=== PATIENT | male | born 1960 | race Caucasian/White ===

== ENCOUNTER 2022-03-12 10:25 | Emergency (ER) | payer MEDICARE, BC, SELFPAY ==
[2022-03-12 11:14] VITALS: BP 135/67; PULSE 57; RESP 16; TEMP 36.2; O2SAT 99
--- NOTE | 2022-03-12 11:24 | ED.SKABFB ---
HPI - Skin/Abscess/Foreign Bdy General Chief complaint: Skin/Abscess/Foreign Body Stated complaint: foreign object in rt foot Time Seen by Provider: 03/12/22 11:24 Source: patient Mode of arrival: ambulatory Limitations: no limitations History of Present Illness HPI narrative: Paolo is a 61-year-old male patient presenting to the clinic today with complaints of possible shard of glass and the right bottom foot. He reports that 2 days ago he stepped on a broken coffee pot that the cat knocked on the for. He believes his tetanus shot is up-to-date within last 10 years. Related Data Home Medications Medication Instructions Recorded Confirmed No Home Medications 03/12/22 03/12/22 Allergies Allergy/AdvReac Type Severity Reaction Status Date / Time No Known Allergies Allergy Verified 03/12/22 11:17 Review of Systems Review of Systems: Pertinent positives per HPI. Patient denies any fever, chills, rash, headache, visual changes, dizziness, cough, runny nose, sore throat, shortness of breath, chest pain, palpitations, nausea, vomiting, diarrhea, constipation, abdominal pain, or any urinary issues. PMFSH Comments At the time of my signature, I reviewed and agree with the nursing past medical, surgical, social, and family history. There is no relevant family history pertinent to the patient complaint. Exam Narrative: General: Well-developed, well nourished, in no apparent distress Head: Normocephalic, atraumatic. Cardio: Regular rate and rhythm, s1 and s2 normal, no murmur appreciated. Resp: Clear to auscultation bilaterally, no rhonchi, rales, wheezing or rubs. Integumentary: [place], warm, and dry, intact without lesion, no rashes. Small area to the right midfoot with a small palpable foreign body under the skin. Course Course Emergency Course: Portions of this record may have been created with voice recognition software. Level of Care: Express Care Visit Vital Signs Vital signs: Vital Signs Temperature 36.2 C L 03/12/22 11:14 Pulse Rate 57 L 03/12/22 11:14 Respiratory Rate 16 03/12/22 11:14 Blood Pressure 135/67 03/12/22 11:14 Pulse Oximetry 99 03/12/22 11:14 Oxygen Delivery Room Air 03/12/22 11:14 Temperature 36.2 C L 03/12/22 11:14 Pulse Rate 57 L 03/12/22 11:14 Respiratory Rate 16 03/12/22 11:14 Blood Pressure 135/67 03/12/22 11:14 Pulse Oximetry 99 03/12/22 11:14 Oxygen Delivery Room Air 03/12/22 11:14 Vital signs reviewed Procedures Foreign Body Removal Foreign Body #1: Foreign Body Removal Date: 03/12/22 Site: right and foot Description of foreign body: other (Shard of glass) Sedation/Analgesia: none Technique: removal with forceps and other (18 gauge needle) Confirmed by:: direct visualization, patient report and palpation Complications: none Post-procedure exam: awake, alert Neurovascular: no change from pre-procedure Foreign Body Removal Narrative: Verbal consent obtained for foreign body removal of soft tissue of the right foot. Patient has suspected shard of glass in the right midfoot. Area was numbed using 2 mL of lidocaine without epi. A 15 blade was then used to make a 0.5 cm incision. Forceps were then used to palpate the wound and shard of glass was palpable and removed with the assistance of an 18 gauge needle. Patient palpated foot and feels as though the shard of glass is gone. No visualization of any other foreign body and wound bed. Patient tolerated procedure well less than 5 mL of blood loss. Triple antibiotic ointment and Band-Aid after bleeding was controlled. Discharge Plan Discharge Clinical Impression: Acute foreign body of right foot Qualifiers: Encounter type: initial encounter Qualified Code(s): S90.851A - Superficial foreign body, right foot, initial encounter Patient Disposition: Home, Self-Care Condition: Stable Instructions: Antibiotic Form, Soft Tis
== END 2022-03-12 11:45 | disposition home or self-care (01) ==
PROVIDERS: Emergency Provider Nurse Practitioner Family
DX: S90.851A Superficial foreign body, right foot, initial encounter (principal); W25.XXXA Contact with sharp glass, initial encounter; E78.00 Pure hypercholesterolemia, unspecified
CPT/HCPCS: 10120; 99202; G0463

== ENCOUNTER 2022-10-30 08:16 | Outpatient (CLI) | payer MEDICARE, OTHER, SELFPAY ==
[2022-10-30 08:37] LABS: Basophils Absolute Auto 0.1 K/mm3 (0.0-0.1); Basophils Percent Auto 0.6 % (0.2-1.2); Eosinophils Absolute Auto 0.1 K/mm3 (0-0.3); Eosinophils Percent Auto 1.6 % (0-4.4); Hematocrit 48.8 % (42.0-52.0); Hemoglobin 15.6 g/dL (14.0-18.0); Immature Granulocyte Absolute 0.02 K/mm3 (0.00-0.031); Immature Granulocyte Percent A 0.3 % (0-0.5); Lymphocytes Absolute Auto 1.68 K/mm3 (0.9-3.2); Lymphocytes Percent Auto 21.1 % (18.3-44.2); Mean Corpuscular Hemoglobin 28.9 pg (26-34); Mean Corpuscular Volume 90.5 fl (80-100); Mean Platelet Volume 10.6 fl (7.4-10.4); Monocytes Absolute Auto 0.6 K/mm3 (0.1-0.6); Monocytes Percent Auto 7.8 % (2.6-8.5); Neutrophils Absolute Auto 5.5 K/mm3 (1.3-6.7); Neutrophils Percent Auto 68.6 % (45.5-73.1); Platelet Count Result 181 k/mm3 (150-375); Red Blood Count 5.39 M/mm3 (4.6-6.20); Red Cell Distribution Width 14.4 % (11.5-14.5)
[2022-10-30 08:49] LABS: Alanine Aminotransferase 36 U/L (6-50); Albumin Level 4.4 g/dL (3.5-5.1); Alkaline Phosphatase 83 U/L (38-126); Anion Gap 9 mmol/L (8-16); Aspartate Amino Transferase 28 U/L (17-59); Bilirubin,Total 0.4 mg/dL (0.2-1.3); Blood Urea Nitrogen 21 mg/dL (9-20); Calcium 9.4 mg/dL (8.4-10.2); Carbon Dioxide 29 mmol/L (22-30); Chloride 103 mmol/L (98-107); Cholesterol 268 mg/dL (0-200); Estimated Glomerular Filt Rate > 60; Glucose 104 mg/dL (65-110); HDL Direct 44 mg/dL; Potassium 4.1 mmol/L (3.4-5.0); Sodium 141 mmol/L (137-145); Triglycerides 142 mg/dL (<150)
[2022-10-30 09:00] LABS: LDL Cholesterol Direct 190 mg/dL
[2022-10-30 09:19] LABS: Prostate Specific Antigen 1.1 ng/mL (< OR = 4.0)
== END 2022-10-30 08:17 | disposition home or self-care (01) ==
PROVIDERS: PCP Family Medicine; Visit Provider Physician Assistant Medical
DX: E78.5 Hyperlipidemia, unspecified (principal); Z13.0 Encounter for screening for diseases of the blood and blood-forming organs and certain disorders involving the immune mechanism; Z12.5 Encounter for screening for malignant neoplasm of prostate; Z01.83 Encounter for blood typing
CPT/HCPCS: 36415; 80053; 80061; 84153; 85025; 86900; 86901; G0103

== ENCOUNTER → 2022-11-19 11:49 | Outpatient (CLI) | payer MEDICARE, OTHER, SELFPAY ==
--- NOTE | ~2022-11-19 | XR_ITS ---
Thoracic spine: Clinical Indication: Other specified postprocedural states AP and lateral views were performed. There is probable minimal anterior wedging deformity of T9. The intervertebral disc spaces appear nor mal. Intrathecal catheter/wire present. Impression: Intrathecal catheters/wires present. Minimal anterior wedging deformity of T9. Reviewed, dictated and finalized at [facility]. Impression: Intrathecal catheters/wires present. Minimal anterior wedging deformity of T9.
--- NOTE | ~2022-11-19 | XR_ITS ---
Lumbosacral Spine: AP and lateral views Clinical History: Postprocedural state Findings: The normal lordotic curve is maintained. There is left-sided posterior fusion hardware from L4 to L5 with associated L4-L5 interbody fusion device present. There is moderate to advanced degene rative disc narrowing at L3-L4 and L5-S1. There is severe degenerative disc narrowing at L2-L3. There is moderate to advanced facet arthropathy at the lower lumbar spine. There is 4 mm retrolisthesis of L3 over L4. The intervertebral disc spaces are preserved. The sacroiliac joints are normally outlin ed. Neurostimulator wires/internal catheter present. Impression: Moderate degenerative spondylosis, with 4 mm retrolisthesis of L3 over L4. Postoperative changes at the L4-L5 level, as above. Neurostimulator present. Reviewed, dictated and finalized at [facility]. Impression: Moderate degenerative spondylosis, with 4 mm retrolisthesis of L3 over L4. Postoperative changes at the L4-L5 level, as above. Neurostimulator present.
== END ==
PROVIDERS: PCP Physician Assistant Medical; Visit Provider Pain Medicine Pain Medicine
DX: M54.16 Radiculopathy, lumbar region (principal); Z98.890 Other specified postprocedural states; M47.896 Other spondylosis, lumbar region; Z96.82 Presence of neurostimulator
CPT/HCPCS: 72072; 72100

== ENCOUNTER 2022-12-08 07:49 | Outpatient (CLI) | payer MEDICARE, OTHER, SELFPAY ==
[2022-12-08 08:24] LABS: Alanine Aminotransferase 38 U/L (6-50); Cholesterol 168 mg/dL (0-200); HDL Direct 41 mg/dL; Triglycerides 149 mg/dL (<150)
[2022-12-08 08:33] LABS: LDL Cholesterol Direct 94 mg/dL
[2022-12-08 08:36] LABS: Creatine Kinase 39 U/L (55-170)
== END 2022-12-08 07:50 | disposition home or self-care (01) ==
PROVIDERS: PCP Physician Assistant Medical; Visit Provider Physician Assistant Medical
DX: E78.5 Hyperlipidemia, unspecified (principal)
CPT/HCPCS: 36415; 80061; 82550; 84460

== ENCOUNTER 2023-02-06 13:16 | Outpatient (CLI) | payer MEDICARE, OTHER, BC, SELFPAY ==
--- NOTE | 2023-02-06 13:29 | ECG_ITS ---
Measurements Intervals [place] Rate: 55 P: 42 KS: 151 QRS: 30 QRSD: 90 T: 17 QT: 410 QTc: 392 Interpretive Statements SINUS BRADYCARDIA CANNOT RULE OUT SEPTAL INFARCT, AGE INDETERMINATE ABNORMAL ECG NO PREVIOUS ECG AVAILABLE FOR COMPARISON Electronically Signed On 02-06-2023 15:13:17 CLIENT SERVICES DIRECTOR by Elan Abdul D.O.
== END 2023-02-06 13:17 | disposition home or self-care (01) ==
PROVIDERS: PCP Family Medicine; Visit Provider Physician Assistant Medical
DX: Z01.818 Encounter for other preprocedural examination (principal); R94.31 Abnormal electrocardiogram [ECG] [EKG]
CPT/HCPCS: 93005

== ENCOUNTER 2023-11-04 09:46 | Observation (INO) | payer MEDICARE, OTHER, SELFPAY ==
[2023-11-04] VITALS (13 sets, daily range): BP systolic 129–150; BP diastolic 59–78; PULSE 48–98; RESP 14–22; TEMP 36.4–36.8; O2SAT 96–100; BMI 27.2
--- NOTE | ~2023-11-04 | CT_ITS ---
Clinical Indication: Dyspnea CT Scan of the Chest with Contrast: Technique: Contiguous sections were acquired throughout the chest after intravenous administration of 100 cc of Omnipaque 350. Dose reduction technique was used on this scan by utilizing automated expos ure control and iterative reconstruction technique. The dose-length product (DLP) was 533.98 mGy-cm. Findings: There is no evidence of any significant mediastinal, hilar or axillary lymphadenopathy. There is no f illing defect in the pulmonary arterial tree to suggest pulmonary embolus. There is no evidence of ao rtic dissection or aneurysm. There is no evidence of pleural or pericardial effusion. Pulmonary nodule with small central calcification at the lingula is most compatible with granuloma. L ungs are otherwise clear. Images through the upper abdomen reveal no abnormalities. Impression: No evidence of pulmonary embolus, aortic dissection, or aortic aneurysm. Probable lingular granuloma, otherwise clear lungs. Reviewed, dictated and finalized at [facility]. Impression: No evidence of pulmonary embolus, aortic dissection, or aortic aneurysm. Probable lingular granuloma, otherwise clear lungs.
--- NOTE | ~2023-11-04 | XR_ITS ---
Clinical Indication: Chest pain PA and lateral views of the chest: Comparison: None Findings: The lungs are clear, without evidence of focal consolidation or pleural effusion. Cardiome diastinal silhouette is within normal limits. Bones and soft tissues are unremarkable. Impression: Normal chest. Reviewed, dictated and finalized at location . Impression: Normal chest.
--- NOTE | ~2023-11-04 | NM_ITS ---
EXAMINATION: NM kemal stress w perfusion DATE: 11/05/2023 12:28 CDT INDICATION: Exertional chest pain TECHNIQUE: Rest images were obtained following intravenous administration of 11 mCi Tc99m tetrofosmin (Myoview). The patient was infused intravenously with Lexiscan (regadenoson). Then, 33.7 mCi Tc99m t etrofosmin (Myoview) was administered intravenously, and stress images were obtained. Data was recons tructed into short axis and horizontal and vertical long axis SPECT images. Gated SPECT images were a lso obtained. COMPARISON: None. FINDINGS: There is no definite reversible or fixed perfusion abnormality to suggest ischemia or infar ction. There is no segmental wall motion abnormality. Left ventricular ejection fraction measures 6 7%. IMPRESSION: 1. No definite ischemia or infarct. 2. Normal left ventricular ejection fraction measuring 67%. Reviewed, dictated and finalized at location B.
--- NOTE | 2023-11-04 09:47 | ECG_ITS ---
Test Date: 2023-11-04 10:03:33 Measurements Intervals [place] Rate: 54 P: 42 CA: 161 QRS: 17 QRSD: 90 T: 44 QT: 417 QTc: 398 Interpretive Statements SINUS BRADYCARDIA OTHERWISE NORMAL ELECTROCARDIOGRAM No previous ECG available for comparison Electronically Signed On 11-05-2023 07:19:57 CDT by Cayden Torrez M.D.
[2023-11-04 10:11] LABS: Basophils Absolute Auto 0.1 K/mm3 (0.0-0.1); Basophils Percent Auto 0.7 % (0.2-1.2); Eosinophils Absolute Auto 0.2 K/mm3 (0-0.3); Eosinophils Percent Auto 1.8 % (0-4.4); Hematocrit 51.5 % (42.0-52.0); Immature Granulocyte Absolute 0.02 K/mm3 (0.00-0.031); Immature Granulocyte Percent A 0.2 % (0-0.5); Lymphocytes Percent Auto 23.3 % (18.3-44.2); Mean Corpuscular Hemoglobin 29.7 pg (26-34); Mean Corpuscular Volume 89.9 fl (80-100); Mean Platelet Volume 11.3 fl (7.4-10.4); Monocytes Absolute Auto 0.5 K/mm3 (0.1-0.6); Monocytes Percent Auto 6.6 % (2.6-8.5); Neutrophils Absolute Auto 5.5 K/mm3 (1.3-6.7); Neutrophils Percent Auto 67.4 % (45.5-73.1); Platelet Count Result 157 k/mm3 (150-375); Red Blood Count 5.73 M/mm3 (4.6-6.20); Red Cell Distribution Width 13.9 % (11.5-14.5); White Blood Count 8.2 K/mm3 (4.5-10.0)
[2023-11-04 10:20] LABS: Alanine Aminotransferase 36 U/L (6-50); Albumin Level 4.9 g/dL (3.5-5.1); Alkaline Phosphatase 76 U/L (38-126); Anion Gap 11 mmol/L (4-12); Aspartate Amino Transferase 30 U/L (17-59); Bilirubin,Total 0.4 mg/dL (0.2-1.3); Blood Urea Nitrogen 12 mg/dL (9-20); Calcium 9.7 mg/dL (8.4-10.2); Carbon Dioxide 28 mmol/L (22-30); Chloride 102 mmol/L (98-107); Estimated CRCL calculation 65 ml/min; Estimated Glomerular Filt Rate > 60; Glucose 119 mg/dL (65-110); Lipase 85 U/L (23-300); Potassium 4.4 mmol/L (3.4-5.0); Sodium 141 mmol/L (137-145)
[2023-11-04 10:32] LABS: Troponin I < 0.012 ng/mL (0.000-0.034)
[2023-11-04 10:39] LABS: INR 0.9; Prothrombin Time 12.3 Seconds (11.1-14.7)
[2023-11-04 10:40] LABS: Partial Thromboplastin Time 27.1 Seconds (22.3-36.8)
[2023-11-04] MEDS: ASPIRIN 81 MG CHEWABLE TABLET 324 MG PO (11:45)
--- NOTE | 2023-11-04 11:53 | ED.GENADULT ---
HPI - General Adult General Chief complaint: Chest Pain Stated complaint: chest pain, shortness of breath upon exertion Time Seen by Provider: 11/04/23 11:38 History of Present Illness HPI narrative: This is a 63-year-old male with past medical history significant for hypertension, hyperlipidemia who presents to the emergency room with chief complaint of worsening chest pain and difficulty in breathing he describes as only occurring with exertion. Patient states for last month he has been doing with this similar symptom whenever he gets up and moves around or exerts himself such as walking up and down stairs, lifting things around the house or even walking past the block. Patient states he gets sudden chest pain in the center of his chest that does not radiate anywhere and is associated with difficulty in breathing. He patient states he sometimes feels like he is gasping for breath when this occurs. Has not sought medical attention has never seen a waste management recycling technician or underwent any kind of evaluation with an echocardiogram. Presently he is asymptomatic at rest and denies any nausea, vomiting, chest pain, shortness a breath, abdominal pain, back pain, fever, chills. Denies any history of DVT or PE denies any leg swelling or history of CHF. Was previously in his normal state of health. Related Data Allergies Allergy/AdvReac Type Severity Reaction Status Date / Time No Known Allergies Allergy Verified 11/04/23 09:52 Review of Systems Review of Systems: As reviewed above in HPI [facility] Past Medical History Medical History Abnormal EKG BMI 25.0-25.9,adult BMI 28.0-28.9,adult Degenerative disc disease Lumbar spondylosis Malfunction of spinal cord stimulator Surgical History Surgical History History of knee surgery History of lumbar spinal fusion Family History Family History Father Cancer Mother Cancer Sibling Diabetes mellitus Drug abuse Sibling No problems noted. Other Acute myocardial infarction Social History Social History Smoking packs per day: 1 Smoking cigarettes per day: 20.0 Smoking status: Current every day smoker Tobacco type: cigarettes Second hand tobacco smoke exposure: No Alcohol intake: never Substance use: never Substance use type: does not use Lack of Transportation: No Lack of Food: Never True Current Housing: I Have Housing Concerned About Future Housing: No Difficulty Paying Gas/Electric Bills: No Difficulty Paying for Meds: No Currently Unemployed: No Education: Trade/Vocational Certificate Difficulty w/ Childcare or Family Care: No Living arrangements: with family Occupation/Education: retired 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 Mucous membranes moist. NECK: Supple. CHEST: [Clear to auscultation. No respiratory distress.] HEART: [Regular rate and rhythm]. No murmur heard. [Normal peripheral pulses.] ABDOMEN: [Soft, nondistended], [nontender], [No rigidity or guarding] EXTREMITIES: Normal range of motion. [No edema.] SKIN: Warm, dry, no rash. NEURO: [No focal deficits]. Alert and oriented [x3.] PSYCH: [Normal mood and affect.] Course Vital Signs Vital signs: Vital Signs Temperature 36.6 C 11/04/23 09:47 Pulse Rate 66 11/04/23 09:47 Respiratory Rate 15 11/04/23 09:47 Blood Pressure 150/74 H 11/04/23 09:47 Pulse Oximetry 97 11/04/23 09:47 Oxygen Delivery Room Air
[2023-11-04 13:24] LABS: Troponin I < 0.012 ng/mL (0.000-0.034)
--- NOTE | 2023-11-04 14:55 | PM.IMHP ---
H&P: HPI History of Present Illness Date/Time: 11/04/23 14:55 Chief Complaint: Chest pain Narrative: This is a 63-year-old male with a significant past medical history of hyperlipidemia, current every day smoker presents to the hospital with complaints of worsening chest pain and difficulty breathing with exertion. Patient reports that he has had substernal chest pain with exertion which does relieve with rest for the last few days. He denies ever having a cardiac workup, echocardiogram, or cardiac catheterization in the past. He reports that quite a few men in his family have all from having a heart attack. He does report that he is a current 1 pack per day smoker and has smoked his entire life. He denies any fever, chills, nausea, vomiting, diarrhea, abdominal pain, chest pain, shortness a breath. He states when the chest pain does come on with exertion it is 10/10 pain accompanied with shortness of breath. He is found to be hypertensive with blood pressures ranging 129/60-150/74. He is not on any home medication for blood pressure. Workup in the hospital included chest x-ray which was normal. Chest CTA was negative for PE, aortic dissection, aortic aneurysm, probable lingular granuloma otherwise clear lungs. Initial labs showed a normal white blood cell count of 8.2, INR 0.9, troponin negative x2, lipase 85. EKG showing sinus Braulio with a heart rate of 54, QTC 398. He was given aspirin 324 mg while in the ED. Review of Systems Review of Systems: All systems reviewed & are unremarkable except as noted in HPI and below Constitutional: Constitutional: Reports as per HPI and Reports no additional constitutional complaints Eyes: Eyes: Reports as per HPI and Reports no additional eye complaints ENT: Reports system reviewed and no additional complaints, except as documented and Reports as per HPI Cardiovascular: Cardiovascular: Reports as per HPI and Reports no additional cardiovascular complaints Respiratory: Respiratory: Reports as per HPI and Reports no additional respiratory complaints Gastrointestinal: Gastrointestinal: Reports as per HPI and Reports no additional gastrointestinal complaints Genitourinary: Genitourinary: Reports no additional male genitourinary complaints and Reports as per HPI Musculoskeletal: Musculoskeletal: Reports no additional musculoskeletal complaints and Reports as per HPI Integumentary/Breasts: Skin/Breast: Reports system reviewed and no additional complaints, except as docu and Reports as per HPI Neurologic: Reports system reviewed and no additional complaints, except as documented and Reports as per HPI Psychiatric: Psychiatric: Reports no additional psychiatric complaints and Reports as per HPI [facility] Past Medical History Medical History Abnormal EKG BMI 25.0-25.9,adult BMI 28.0-28.9,adult Degenerative disc disease HTN (hypertension) Hyperlipidemia Lumbar spondylosis Malfunction of spinal cord stimulator Tobacco abuse Surgical History Surgical History H/O hernia repair H/O shoulder surgery History of knee surgery History of lumbar spinal fusion S/P placement of nerve stimulator Family History Family History Father Cancer Mother Cancer Sibling Diabetes mellitus Drug abuse Sibling No problems noted. Other , Uncle Acute myocardial infarction Other , Uncle Acute myocardial infarction Other Acute myocardial infarction Social History Social History Smoking packs per day: 1 Smoking cigarettes per day: 20.0 Smoking status: Current every day smoker Tobacco type: cigarettes Second hand tobacco smoke exposure: No Alcohol intake: nev
--- NOTE | 2023-11-04 15:22 | PC.NURSE ---
Spoke with stress lab, they state pt will be getting his tests tomorrow so he can eat today then NPO after midnight
[2023-11-04] MEDS: NICOTINE (*PBKC) 14 MG PATCH 1 PATCH TRANSDERM (16:06)
[2023-11-04 16:34] LABS: Troponin I < 0.012 ng/mL (0.000-0.034)
--- NOTE | 2023-11-04 18:27 | ADMGEN ---
This patient, Paolo Williamson, was admitted to IMU Room 231-01 @ 1825.. Patient/family oriented to hospital policies and general routines including ID bracelet, bed and alarms, visiting hours, pain management, procedures, bathroom and other care routines, personal items, smoking policy, room service/diet, and visiting hours. Information on how to activate the Rapid Response Team has been discussed. Patient/Family are encouraged to report perceived risks to care and to ask questions if they do not understand what they are told or what they should do.
[2023-11-04] MEDS: MELATONIN 3 MG TABLET 6 MG PO (20:49)
[2023-11-05] VITALS (8 sets, daily range): BP systolic 122–129; BP diastolic 53–86; PULSE 45–67; RESP 12–18; TEMP 36.5–36.7; O2SAT 95–100
--- NOTE | 2023-11-05 | EST_ITS ---
Patient Info Name: Paolo Williamson Age: 63 years : 1960 Gender: Male Ht: 66 in Wt: 172 lbs BSA: 1.92 m2 Exam Date: 11/05/2023 11:07 AM Exam Location: Echo Lab Patient Status: Outpatient Admit Date: 11/04/2023 Staff Ordering Physician: Fe Murphy APRN Attending Provider: Ophelia Nguyen MD Exercise Technologist: Arleth Rico RDCS Exercise Physician: Elan Abdul DO Exam Type: CA stress kemal w NM Study Info Indications R07.9 - Chest pain, unspecified A regadenoson stress test was performed. Summary 1. 1. Negative lexiscan stress test for ischemic ST changes by ECG criteria. 2. 2. Stable hemodynamics throughout the test. 3. 3. Nuclear scan to follow and will be reported separately. Please correlate with it. 4. 4. Patient informed of the above results. Protocol: Lexiscan Stress ECG Details Stage: REST Duration (min): 0 min : 46 sec HR (bpm): 51 SBP (mmHg): 139 DBP (mmHg): 63 Stage: REST Duration (min): 0 min : 52 sec HR (bpm): 52 SBP (mmHg): 139 DBP (mmHg): 63 Stage: REST Duration (min): 14 min : 36 sec HR (bpm): 52 SBP (mmHg): 139 DBP (mmHg): 63 Stage: STAGE 1 Duration (min): 0 min : 59 sec HR (bpm): 80 SBP (mmHg): 152 DBP (mmHg): 86 Stage: RECOVERY Duration (min): 1 min : 0 sec HR (bpm): 80 SBP (mmHg): 169 DBP (mmHg): 79 Stage: RECOVERY Duration (min): 2 min : 0 sec HR (bpm): 81 SBP (mmHg): 169 DBP (mmHg): 79 Stage: RECOVERY Duration (min): 3 min : 0 sec HR (bpm): 76 SBP (mmHg): 153 DBP (mmHg): 78 Stage: RECOVERY Duration (min): 3 min : 3 sec HR (bpm): 77 SBP (mmHg): 153 DBP (mmHg): 78 Rest HR: 52 bpm Peak HR: 90 bpm Rest Sys BP: 139 mmHg Peak Sys BP: 169 mmHg Max Pred HR: 155 bpm % Max Pred HR: 58 % Target HR: 132 bpm Max RPP: 15,210 bpm*mmHg Termination Reason: Completed protocol Cardiac Symptoms: Shortness of breath Total Time: 1 min : 0 sec Rest Camacho BP: 63 mmHg Peak Camacho BP: 79 mmHg Total Dose: 0.4 mg Resting ECG Sinus bradycardia. Stress ECG No ST changes. Arrhythmias None. Report Signatures
[2023-11-05 05:38] LABS: Basophils Absolute Auto 0.1 K/mm3 (0.0-0.1); Basophils Percent Auto 0.9 % (0.2-1.2); Eosinophils Absolute Auto 0.1 K/mm3 (0-0.3); Eosinophils Percent Auto 1.9 % (0-4.4); Hematocrit 45.7 % (42.0-52.0); Hemoglobin 14.8 g/dL (14.0-18.0); Immature Granulocyte Absolute 0.01 K/mm3 (0.00-0.031); Immature Granulocyte Percent A 0.1 % (0-0.5); Lymphocytes Absolute Auto 1.88 K/mm3 (0.9-3.2); Lymphocytes Percent Auto 28.1 % (18.3-44.2); Mean Corpuscular HGB Conc 32.4 g/dl (32-36); Mean Corpuscular Hemoglobin 29.5 pg (26-34); Mean Corpuscular Volume 91.2 fl (80-100); Mean Platelet Volume 11.3 fl (7.4-10.4); Monocytes Absolute Auto 0.6 K/mm3 (0.1-0.6); Monocytes Percent Auto 8.2 % (2.6-8.5); Neutrophils Absolute Auto 4.1 K/mm3 (1.3-6.7); Neutrophils Percent Auto 60.8 % (45.5-73.1); Platelet Count Result 143 k/mm3 (150-375); Red Blood Count 5.01 M/mm3 (4.6-6.20); Red Cell Distribution Width 13.8 % (11.5-14.5); White Blood Count 6.7 K/mm3 (4.5-10.0)
[2023-11-05 05:54] LABS: Alanine Aminotransferase 27 U/L (6-50); Albumin Level 3.8 g/dL (3.5-5.1); Alkaline Phosphatase 67 U/L (38-126); Anion Gap 9 mmol/L (4-12); Aspartate Amino Transferase 24 U/L (17-59); Bilirubin,Total 0.3 mg/dL (0.2-1.3); Blood Urea Nitrogen 15 mg/dL (9-20); Carbon Dioxide 26 mmol/L (22-30); Chloride 103 mmol/L (98-107); Estimated CRCL calculation 65 ml/min; Estimated Glomerular Filt Rate > 60; Glucose 105 mg/dL (65-110); Potassium 4.5 mmol/L (3.4-5.0); Sodium 138 mmol/L (137-145)
--- NOTE | 2023-11-05 06:00 | ECHO_ITS ---
Patient Info Name: Paolo Williamson Age: 63 years : 1960 Gender: Male Ht: 66 in Wt: 168 lbs BSA: 1.90 m2 HR: 49 bpm BP: 128 / 53 mmHg Heart Rhythm: Bradycardia Technical Quality: Fair Exam Date: 11/05/2023 9:47 AM Exam Location: Echo Lab Patient Status: Inpatient Admit Date: 11/04/2023 Staff Ordering Physician: Elijah Rowell MD Supervisor Cured Meats: Esther Stratton RDCS Attending Provider: Ophelia Nguyen MD Referring Physician: Sorin REDDING; Exam Type: CA echo doppler color flow Study Info Indications - angina Complete two-dimensional, color flow and Doppler transthoracic echocardiogram is performed. Summary 1. Complete two-dimensional, color flow and Doppler transthoracic echocardiogram is performed. 2. Left ventricular chamber dimension is normal. 3. Left ventricular systolic function is normal, estimated at 60-65%. 4. The left ventricular diastolic function is abnormal. 5. E/e' 10 is mildly elevated. 6. No pulmonary hypertension, estimated pulmonary arterial systolic pressure is 18 mmHg. Left Ventricle E/e' 10 is mildly elevated. Left ventricular chamber dimension is normal. Left ventricular systolic function is normal, estimated at 60-65%. The left ventricular diastolic function is abnormal. Right Ventricle Right ventricular chamber dimension is normal. Right ventricular systolic function is normal and with normal TAPSE 2.2 cm. Left Atria Left atrial chamber dimension is normal. Right Atria Right atrial chamber dimension is normal. Aortic Valve The aortic valve is trileaflet. There is no aortic valve stenosis. There is no aortic valve regurgitation. Pulmonic Valve There is no pulmonic regurgitation. Mitral Valve There is no mitral valve stenosis. There is no mitral valve regurgitation. Tricuspid Valve There is no tricuspid valve regurgitation. No pulmonary hypertension, estimated pulmonary arterial systolic pressure is 18 mmHg. Pericardium/Pleural There is no pericardial effusion. Inferior Vena Cava Normal inferior vena cava with >50% collapse upon inspiration consistent with normal right atrial pressure, 5 mmHg. Aorta The aortic root size at the sinus of Valsalva is normal. Left Ventricular Outflow Tract Name Value Normal LVOT 2D LVOT Diameter 2.0 cm LVOT Doppler LVOT Peak Gradient 4 mmHg LVOT Mean Gradient 1 mmHg LVOT VTI 20 cm LVOT VTI/AV VTI Ratio 0.8 LVOT Stroke Volume 64 ml LVOT CO 3.2 l/min LVOT CI 1.7 l/min/m2 Pulmonic Valve Name Value Normal RVOT Doppler RVOT Peak Gradient 1 mmHg PV Doppler PV Peak Gradient 3 mmHg Mitral Valve
[2023-11-05] MEDS: lisinopriL 5 MG TABLET PO (09:18)
[2023-11-05] MEDS: ROSUVASTATIN 20 MG TABLET 40 MG PO (09:18)
[2023-11-05] MEDS: ASPIRIN 81 MG ENTERIC TABLET PO (09:18)
--- NOTE | 2023-11-05 10:35 | PM.CNCAR ---
Assessment and Plan Assessment and plan (1) Chest pain: Code(s): R07.9 - Chest pain, unspecified Status: Acute Assessment and Plan: EKG and troponin are unremarkable. Obtain lexiscan myoview and echo. If unremarkable then needs to assess pulmonary status. (2) Hyperlipidemia: Code(s): E78.5 - Hyperlipidemia, unspecified Status: Acute Assessment and Plan: On Rosuvastatin. (3) Tobacco abuse: Code(s): Z72.0 - Tobacco use Status: Acute Assessment and Plan: Counseled regarding smoking cessation. History of Present Illness History of Present Illness Consult date/time: 11/05/23 10:35 Reason For Visit: Angina Narrative: 63 yr old man presents to ER with chest pain. He has a history of dyslipidemia, smoking. Reports he has exertional sob and some left sided chest pressure. He smokes 1 ppd. Denies orthopnea, PND, edema, dizziness, palpitations. Review of Systems Review of Systems: All systems reviewed & are unremarkable except as noted in HPI and below Constitutional: Constitutional: Reports as per HPI, Denies chills and Denies fever(s) Cardiovascular: Cardiovascular: Reports as per HPI, Reports chest pain and Denies irregular heart rhythm Respiratory: Respiratory: Reports as per HPI and Reports dyspnea on exertion Gastrointestinal: Gastrointestinal: Reports as per HPI and Denies abdominal pain Genitourinary: Genitourinary: Reports as per HPI and Denies dysuria Musculoskeletal: Musculoskeletal: Reports as per HPI Neurologic: Reports as per HPI, Denies dizziness and Denies syncope PMFSH Past Medical History Medical History Abnormal EKG BMI 25.0-25.9,adult BMI 28.0-28.9,adult Degenerative disc disease HTN (hypertension) Hyperlipidemia Lumbar spondylosis Malfunction of spinal cord stimulator Tobacco abuse Surgical History Surgical History H/O hernia repair H/O shoulder surgery History of knee surgery History of lumbar spinal fusion S/P placement of nerve stimulator Family History Family History Father Cancer Mother Cancer Sibling Diabetes mellitus Drug abuse Sibling No problems noted. Other , Uncle Acute myocardial infarction Other , Uncle Acute myocardial infarction Other Acute myocardial infarction Social History Social History Smoking packs per day: 1 Smoking cigarettes per day: 20.0 Smoking status: Current every day smoker Tobacco type: cigarettes Second hand tobacco smoke exposure: No Alcohol intake: never Substance use: never Substance use type: does not use Do You Feel Safe in your Home?: Yes Lack of Transportation: No Lack of Food: Never True Current Housing: I Have Housing Concerned About Future Housing: No Difficulty Paying Gas/Electric Bills: No Difficulty Paying for Meds: No Currently Unemployed: No Education: High School Diploma/GED Difficulty w/ Childcare or Family Care: No Living arrangements: with family Occupation/Education: retired 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 100 mcg-umeclid 1 inh inhalation DAILY #60 ea 09/02/23 11/04/23 Rx 62.5 mcg-vilant 25 mcg inhalat.powder (Trelegy Ellipta) rosuvastatin 40 mg tablet (Crestor) 40 mg PO DAILY #90 tabs 09/05/23 11/04/23 Rx melatonin 3 mg tablet 6 mg PO HS PRN Sleep 11/04/23 11/04/23 History Allergies Allergy/AdvReac Type Severity Reaction Status Date / Time No Known A
--- NOTE | 2023-11-05 13:27 | PM.DS ---
DS: Admitting Diagnosis Discharge Date 11/05/2023 Admitting Diagnosis Chest pain shortness of breath DS: Discharge Diagnosis Discharge Diagnosis (1) Chest pain: Code(s): R07.9 - Chest pain, unspecified Status: Acute (2) HTN (hypertension): Code(s): I10 - Essential (primary) hypertension Status: Acute (3) Tobacco abuse: Code(s): Z72.0 - Tobacco use Status: Acute (4) Hyperlipidemia: Code(s): E78.5 - Hyperlipidemia, unspecified Status: Acute DS: Summary Hospital Course Hospital Course: Patient is 63-year-old male with history of hypertension hyperlipidemia and smoking presented emergency department with a complaint shortness of breath and chest, to further evaluate patient had 3 sets of cardiac which were normal, patient had a CT of the chest did not show any pulmonary emboli and lungs are clear, patient was seen by Cardiology ordered a stress test for further evaluate which is essentially normal and showed ejection fraction of 67%, will discharge the patient today patient will be seen by his primary care doctor and may need a pulmonary function to further evaluate patient is heavy smoker. Time Spent with Patient Time attestation: Total time spent providing and/or coordinating discharge services: DS: Data Data Completed and Pending Labs on day of discharge: Labs from last 24 hours 11/05/23 11/04/23 05:16 16:01 WBC 6.7 RBC 5.01 Hgb 14.8 Hct 45.7 MCV 91.2 MCH 29.5 MCHC 32.4 RDW 13.8 Plt Count 143 L MPV 11.3 H Immature Gran % (Auto) 0.1 Neut % (Auto) 60.8 Lymph % (Auto) 28.1 Falls % (Auto) 8.2 Eos % (Auto) 1.9 Baso % (Auto) 0.9 Lymph # (Auto) 1.88 Falls # (Auto) 0.6 Eos # (Auto) 0.1 Baso # (Auto) 0.1 Abs Immat Gran (auto) 0.01 Absolute Neuts (auto) 4.1 Absolute Nucleated RBC 0.000 Nucleated RBC % 0.0 Sodium 138 Potassium 4.5 Chloride 103 Carbon Dioxide 26 Anion Gap 9 BUN 15 Creatinine 0.90 Estim Creat Clear Calc 65 Estimated GFR > 60 Glucose 105 Calcium 9.0 Total Bilirubin 0.3 AST 24 ALT 27 Alkaline Phosphatase 67 Troponin I < 0.012 Total Protein 6.0 L Albumin 3.8 Discharge Plan Discharge Attending physician on discharge: Ophelia Nguyen Consulting providers: Fe Murphy; Elan Abdul Discharging Clinician: Ophelia Nguyen Patient Disposition: Home, Self-Care Activity: as tolerated Diet: heart healthy Discharge Instructions: patient to follow up with his primary care provider as soon as possible, patient is instructed if any symptoms worsen to go to nearest ER Patient Instructions: Antibiotic Form Stand Alone Forms: General Discharge Information Follow-up/Referrals: Elan Abdul DO [Physician] - Giovani Iglesias MD [Primary Care Provider] - Discharge Medications: New nicotine 14 mg/24 hr Patch 24 Hour 1 patch transdermal DAILY Qty: 28 0RF lisinopril 5 mg Tablet 5 mg PO QAM Qty: 30 0RF aspirin 81 mg Tablet,Delayed Release (Dr/Ec) 81 mg PO QAM Qty: 30 0RF Continued melatonin 3 mg Tablet 6 mg PO HS PRN (Reason: Sleep) Trelegy Ellipta 100-62.5-25 mcg blister with device 1 inh inhalation DAILY Qty: 60 3RF rosuvastatin [Crestor] 40 mg tablet 40 mg PO DAILY Qty: 90 0RF Date of admission: 11/04/23 14:14 Primary Care Provider: Giovani Iglesias Admitting Provider: Ophelia Nguyen Attending physician on admission: Ophelia Nguyen Condition: Stable
--- NOTE | 2023-11-05 14:13 | PCRCNOTE ---
Window of time for administration has passed. See next scheduled administration.
== END 2023-11-05 14:02 | disposition home or self-care (01) ==
LOC: ANHED 14:18 → ANHIMU 16:05
PROVIDERS: Nurse Practitioner Acute Care; Admitting Provider Family Medicine; Emergency Provider Student in an Organized Health Care Education/Training Program; PCP Family Medicine; Visit Provider Family Medicine
DX: I20.9 Angina pectoris, unspecified (principal); R06.02 Shortness of breath; I10 Essential (primary) hypertension; E78.5 Hyperlipidemia, unspecified; F17.210 Nicotine dependence, cigarettes, uncomplicated; Z98.1 Arthrodesis status; Z79.51 Long term (current) use of inhaled steroids
CPT/HCPCS: 36415; 71046; 71275; 78452; 80053; 83690; 84484; 85025; 85610; 85730; 93005; 93017; 93306; 99285; A9270; A9502; G0378; J1650; J2785; Q9967

== ENCOUNTER 2024-01-17 10:05 | Outpatient (CLI) | payer MEDICARE, BC, OTHER, SELFPAY ==
[2024-01-17 10:40] LABS: Alveolar/Arterial O2 Gradient 13.2 mmHg; Carboxyhemoglobin 5.2 % THb (0-2.0); Fractional Inspired Oxygen 21 %; HCO3 ABG 22.9 mEq/l (22.0-26.0); Methemoglobin ABG 0.3 %THb (0-1.5); Oxygen Content ABG 21.6 %vol (16.0-22.0); Oxygen Saturation ABG 97.7 % (95.0-100.0); Oxyhemoglobin 92.4 % THb (90.0-100.0); PO2 FiO2 Ratio Arterial Blood 4.62 %; Reduced Hemoglobin 2.1 %THb (0-5.0); Total Hemoglobin 16.6 g/dL (12.0-18.0); pH ABG 7.459 (7.350-7.450)
[2024-01-17 10:41] LABS: Device ROOM AIR; Modified Allen's Test Pass
== END 2024-01-17 10:06 | disposition home or self-care (01) ==
PROVIDERS: PCP Family Medicine; Visit Provider Internal Medicine Pulmonary Disease
DX: J44.9 Chronic obstructive pulmonary disease, unspecified (principal)
CPT/HCPCS: 36600; 82375; 82805; 83050; 85018; 94060; 94618; 94726; 94729

== ENCOUNTER 2024-06-23 09:30 | Outpatient (RCR) | payer MEDICARE, BC, SELFPAY ==
[2024-04-17 08:58] VITALS: PULSE 65
== END 2024-08-04 10:53 | disposition home or self-care (01) ==
LOC: ANHCPREHAB 09:30
PROVIDERS: PCP Family Medicine; Visit Provider Internal Medicine Pulmonary Disease
DX: J44.9 Chronic obstructive pulmonary disease, unspecified (principal)
CPT/HCPCS: 94625

== ENCOUNTER 2025-01-05 13:06 | Outpatient (CLI) | payer MEDICARE, BC, SELFPAY ==
--- OUTSIDE RECORDS SUMMARY | 2024-06-01 03:50 | XMS_ITS ---
Author Organization [facility] Address [address] [place], [place] [id number] Care Team Providers Care Breeding Technician Name Role Phone PALLAVI VILLAVICENCIO Unavailable [phone] Giovani Iglesias Unavailable Unavailable Allergies No Known Allergies REASON FOR VISIT The patient has a porokeratosis on the bottom of his right foot. Debridements and sometimes chemical ablations (if needed) help it Vital Signs Height 67.00 in 06/01/2024 Weight 170 lbs 06/01/2024 BMI 26.62 kg/m2 06/01/2024 Height-cm 170.18 cm 06/01/2024 Weight-kg 77.11 kg 06/01/2024 Encounters Encounter Location Date Provider Diagnosis [facility] [address] [place], [place] [id number] 06/01/2024 PALLAVI VILLAVICENCIO Metatarsalgia, right foot M77.41 ; Other eccrine sweat disorders L74.8 and Pain in right foot M79.671 Assessments Encounter Date Diagnosis (ICD Code) Assessment Notes Treatment Notes Treatment Clinical Notes Section Notes 06/01/2024 Metatarsalgia, right foot (ICD-10 - M77.41) Metatarsalgia: I discussed anti-inflammatory treatment options and various means of immobilization with the patient. I educated the patient on icing and stretching, supportive shoegear, and the use of orthotic devices and bracing. Continue supportive shoes and inserts 06/01/2024 Other eccrine sweat disorders (ICD-10 - L74.8) Porokeratosis Resolved: The nonviable tissue was sharply debrided down to normal healthy appearing skin. No evidence of porokeratosis noted. Patient advised to monitor this area, as well as to use emollients and keep pressure off this area with padding, inserts, or orthotics. 06/01/2024 Pain in right foot (ICD-10 - M79.671) Plan Of Treatment Treatment Notes Assessment Notes Metatarsalgia, right foot Metatarsalgia: I discussed anti-inflammatory treatment options and various means of immobilization with the patient. I educated the patient on icing and stretching, supportive shoegear, and the use of orthotic devices and bracing. Continue supportive shoes and inserts Other eccrine sweat disorders Porokeratosis Resolved: The nonviable tissue was sharply debrided down to normal healthy appearing skin. No evidence of porokeratosis noted. Patient advised to monitor this area, as well as to use emollients and keep pressure off this area with padding, inserts, or orthotics. Next Appt Details Follow Up: prn, Reason: History and Physical Notes * HPI (History of Present Illness) Category Sub-Category Detail Notes Category Not es HPI New Complaint Established radha ent presents with a new complaint., Patient complains of an issue to a corn or scar tissue forming where he stepped on a piece of glass last year. The spot is on the ball of the foot under the 2nd digit. , [place]: [facility] Examination Category Sub-Category Detail Notes Category Not es Dermatologic Skin findings: Skin is warm, dr y, supple with no breaks in the skin. Hypertrophic / hyperkeratotic lesion: pl danny aspect of the right 2nd metatarsal head Neurologic Gross sensation Gross sensation is intact to light touch. Vascular Dorsalis pedis pulse: 2/4, bilateral Edema: No edema, bilateral Capillary refill: less than 3 seconds Posterior tibial pulse: 2/4, bilaterally Musculoskeletal Muscle Strength Muscle strength is 5/5 in regards to dorsiflexion, plantarflexion, inversion, and eversion in bilateral lower extremities. Pain on palpation plantar aspect of th e 2nd metatarsal head of the right foot Constitutional Constitutional The patient is a wake, alert, well developed, well groomed and well nourished. Progress Notes * AMEYA CLARKDOB:1960 (64 yo M)Acc No.[id number]:06/01/2024 Patient: ERICKA BASSETTAND Provider: Agusto Villavicencio DPM :1960 A ge:64 Y S ex:Male Date:06/01/2024 [facility] [facility] [facility] [id number] Subjective: * Chief Complaints: * T he patient has a porokeratosis on the bottom of his right foot. Debridements and sometimes chemical ablations (if needed) help it * HPI: H PI: New Complaint E stablished patient presents with a new complaint., Patient complains of an issue to a corn or scar tissue forming where he stepped on a piece of glass last year. The spot is on the ball of the foot under the 2nd digit. , [place]: [facility]. * ROS: G eneral / Constitutional: Patient denies c hills, fever, weakness, night sweats. M usculoskeletal: Patient denies c hildhood foot problems, weakness. P atient complains of j oint pain. P eripheral Vascular: Patient denies u lceration of feet, cold extremities. ? S kin: Patient denies u lcerations, discoloration. P atient complains of c alluses and corns. N eurologic: Patient denies b alance difficulty, confusion, difficulty speaking, dizziness. * Medical History: Denies Past Medical History No Medical History Documented Medical History Verified * Medications: N one * Allergies: N .K.D.A.yesAllergies Verified. Objective: * Vitals: W t:170lbs, Wt-k.11 kg, Ht: 67.00 in, Ht-cm: 170.18 cm, BMI:26.62Index, Body Surface Area: 1.91. * Examination: C onstitutional: Constitutional T he patient is awake, alert, well developed, well groomed and well nourished.. D ermatologic: Skin findings: S kin is warm, dry, supple with no breaks in the skin.. Hypertrophic / hyperkeratotic lesion: p lantar aspect of the right 2nd metatarsal head. V ascular: Dorsalis pedis pulse: 2 /4, bilateral. Posterior tibial pulse: 2 /4, bilaterally. Capillary refill: l ess than 3 seconds. Edema: N o edema, bilateral. N eurologic: Gross sensation G ross sensation is intact to light touch..? M usculoskeletal: Muscle Strength M uscle strength is 5/5 in regards to dorsiflexion, plantarflexion, inversion, and eversion in bilateral lower extremities.. Pain on palpation p lantar aspect of the 2nd metatarsal head of the right foot. Assessment: * Assessment: 1. M etatarsalgia, right foot - M77.41 (Primary) 2 . O ther eccrine sweat disorders - L74.8 3 . P ain in right foot - M79.671 Plan: * Treatment: 2. O ther eccrine sweat disorders Notes: Porokeratosis Resolved: The nonviable tissue was sharply debrided down to normal healthy appearing skin. No evidence of porokeratosis noted. Patient advised to monitor this area, as well as to use emollients and keep pressure off this area with padding, inserts, or orthotics. * Preventive Medicine: Screenings: F all risk screening F all Risk Assessment: N o falls in the past year. * Follow Up: p rn Billing Information: * Visit Code: 97294 Office Visit, Est Pt., Level 3. * Procedure Codes: * Electronic signature of PALLAVI VILLAVICENCIO DPM on 01/05/2025 at 03:02 PM CDT Sign off status: Pending * Provider: Agusto Villavicencio DPM Date: 0 06/01/2024 Generated for Jodie crooks/Charla/Ryan on: 1 03:02 PM CDT
--- NOTE | ~2025-01-05 | CT_ITS ---
EXAMINATION:CT lung screening DATE: 01/05/2025 13:31 INDICATION: Personal history of nicotine dependence. TECHNIQUE: Computed tomography (CT) of the chest was performed without intravenous contrast. Automated exposure control and iterative reconstruction technique were employed. The dose-length product (DLP) was 121.53 mGy-cm. COMPARISON: Chest CT 11/04/2023 FINDINGS: There is mild emphysema. Calcified left lung nodules are consistent with old granulomatous disease. There is a stable 5 mm nodule in left lower lobe. There are a few scattered nodules in the lungs measuring up to 3 mm. No pleural effusion. The heart size is normal. There are coronary artery c alcifications. No pericardial effusion. There is mild bilateral gynecomastia. Epidural electrodes are noted. There is mild chronic anterior wedging of multiple vertebral bodies. There is severe thoracic spondylosis. IMPRESSION: 1. Lung-RADS category 2: Benign appearance or behavior. Continue annual screening with noncontrast low-dose chest CT in 12 months. Reviewed, dictated and finalized at location E. IMPRESSION: 1. Lung-RADS category 2: Benign appearance or behavior. Continue annual screeni ng with noncontrast low-dose chest CT in 12 months.
--- OUTSIDE RECORDS SUMMARY | 2025-01-05 15:02 | XMS_ITS | Clinical Summary ---
Author Organization [facility] Address [address] [place] [address] Care Team Providers Care Artificial Leather Calender Operator Name Role Phone Natali Story NP Primary Care Provider Unavailabl e Allergies No known active allergies Medications ciclopirox 0.77 % creamIndication s:Rash Apply 1 Application topically 2 (two) times daily. 90 g 2 1 Active levocetirizine 5 MG Tab Take 5 mg by mouth daily. 2 Active clotrimazole (LOTRIMIN) 1 % creamIndication s:Rash Apply 1 Application topically 2 (two) times daily. 113 g 2 2 Active pravastatin (PRAVACHOL) 20 MG tabletIndicatio ns:Elevated lipids Take 1 tablet (20 mg total) by mouth nightly at bedtime. 90 tablet 1 2 Active Active Problems Problem Noted Date Diagnosed Date Screen for colon cancer 02/13/2021 Overview (02/13/2021): Added automatically from request for surgery [id number] History of colon polyps 02/13/2021 Overview (02/13/2021): Added automatically from request for surgery [id number] Encounters Date Type Department Care Team Description 11/01/2024 10:31 AM CDT - 11/01/2024 1:00 PM CDT Emergency [facility] Emergency Room [id number] [place] [id number] Martio Grider DO Laceration Discharge Disposition: Another Health Care Institution Not Defined 11/01/2024 Travel from Last 3 Months Immunizations Immunization Administration Dates Next Due Influenza Adult (Generic) 11/10/2020 Td (Generic) 08/03/2014 Td, Adsorbed, Preservative F ree, Adult Use, Lf Unspecified 08/03/2014 Tdap (Adacel) 02/01/2021 Family History Medical History Relation Comments Heart Attack Maternal Aunt Heart Attack Maternal Grandfather Heart Attack Maternal Uncle Relation Status Comments Maternal Aunt Maternal Grandfather Maternal Uncle Social History Tobacco Use Types Packs/Day Years Used Date Smoking Tobacco: Some Days Cigarettes Smokeless Tobacco: Never Tobacco Cessation:Ready to Q uit: Yes; Counseling Given: Yes Comments:Not interested in quiting Alcohol Use Standard Drinks/Week Comments Never 0 (1 standard drink = 0.6 oz pur e alcohol) Sex and Gender Information Value Date Recorded Sex Assigned at Male 11/01/2024 10:41 AM CDT Legal Sex Male 9:28 AM CDT Gender Identity Not on file Sexual Orientation Not on file Last Filed Vital Signs Vital Sign Reading Time Taken Comments Blood Pressure 130/72 11/01/2024 12:58 PM CDT Pulse 88 11/01/2024 12:58 PM CDT Temperature 36.7 C (98 F) 11/01/2024 12:58 PM CDT Respiratory Rate 18 11/01/2024 12:58 PM CDT Oxygen Saturation 96% 11/01/2024 12:58 PM CDT Inhaled Oxygen Concentration - - Weight 78.9 kg (174 lb) 11/01/2024 10:26 AM CDT Height 170.2 cm (5' 7) 11/01/2024 10:26 AM CDT Body Mass Index 27.25 11/01/2024 10:26 AM CDT Plan of Treatment Health Maintenance Due Date Last Done Comments Hepatitis C 1976 Pneumococcal Vaccine: 50+ Years (1 of 2 - PCV) 1977 Zoster Vaccines (1 of 2) 2008 AAA SCREENING 2023 Annual Medicare Wellness Visit 2023 COVID-19 Vaccine ( season) 2024 11/26/2022, 11/19/2021, 06/15/2021, Additional history exists Influenza Adult (#1) 2024 11/26/2022, 11/19/2021, 11/10/2020 DTaP, Tdap and Td Vaccines (2 - Td or Tdap) 02/01/2031 02/01/2021, 08/03/2014, 08/03/2014 Colorectal Cancer Screening Colonoscopy (10 Years) 02/17/2031 02/17/2021 RSV Immunization or 60+ Years Completed 12/31/2022 Hepatitis A Vaccines Aged Out No long er eligible based on patient's age to complete this topic Meningococcal B Vaccine Aged Out No l onger eligible based on patient's age to complete this topic Meningococcal Vaccine Aged Out No ceasar meredith eligible based on patient's age to complete this topic RSV Immunizations Under 20 Months Aged Out No longer eligible based on patient's age to complete this topic Procedures Procedure Name Priority Date/Time Associated Diagnosis Comments XR HAND LT 3V STAT 11/01/2024 10:48 AM CDT from Last 3 Months Results * XR HAND LT 3V (11/01/2024 10:48 AM CDT) Anatomical Region Laterality Modality Hand Radiographic Marquita ging 11/01/2024 11:1 2 AM CDT Impressions 11/01/2024 11:16 AM CDT IMPRESSION: Comminuted angulated impacted fracture of the distal aspect of the second metacarpal. This may involve the articular surface. Foreign bodies are present about the dorsum of the hand and within the second digit. Soft tissue irregularity about the dorsum of the hand due to known laceration. Diminution of the soft tissues about the distal aspect of this fourth digit may relate to soft tissue avulsion injury. This is of undetermined age. Referred By: Interpreted By: Walker Oates MD, 11/01/2024 11:12 AM Narrative 11/01/2024 11:16 AM CDT [facility] [address] [place] [address] Procedure(s): XR HAND LT 3V Date of service: 11/01/2024 10:34 AM Provided clinical information: 64 years, Male, wire wheel vs back of hand no gross FBinjury. Laceration. Procedure and materials: 3 views LEFT hand. Comparison studies: None. Findings: There is DIP joint space narrowing involving the second through fifth digits. Interphalangeal joint space with osteophytic changes are present involving the first digit. There is a comminuted fracture that is present involving the distal aspect of the second metacarpal. I cannot exclude that the articular surface is involved. There is impaction that is present. There is volar angulation of the major distal fracture fragment. There is a radiopaque foreign body that is present within the soft tissues of the second digit at the level of the distal aspect of the proximal phalanx. Punctate sand-like foreign bodies are present in the soft tissues about the dorsum of the hand at the level of the second and third metacarpals. There is shortening of the soft tissues of the distal aspect of the fourth digit. This may relate to avulsion injury. This is of undetermined age. Soft tissue irregularity about the dorsum of the hand due to known laceration. Procedure Note Walker Oates MD - 11/01/2024 [facility] [address] [place] [address] Procedure(s): XR HAND LT 3V Date of service: 11/01/2024 10:34 AM Provided clinical information: 64 years, Male, wire wheel vs back of handno gross FBinjury. Laceration. Procedure and materials: 3 views LEFT hand. Comparison studies: None. Findings: There is DIP joint space narrowing involving the second through fifthdigits. Interphalangeal joint space with osteophytic changes are present involvingthe first digit. There is a comminuted fracture that is present involving the distal aspectof the second metacarpal. I cannot exclude that the articular surface isinvolved. There is impaction that is present. There is volar angulation ofthe major distal fracture fragment. There is a radiopaque foreign body that is present within the soft tissuesof the second digit at the level of the distal aspect of the proximalphalanx. Punctate sand-like foreign bodies are present in the soft tissues aboutthe dorsum of the hand at the level of the second and third metacarpals. There is shortening of the soft tissues of the distal aspect of the fourthdigit. This may relate to avulsion injury. This is of undetermined age. Soft tissue irregularity about the dorsum of the hand due to knownlaceration. IMPRESSION: Comminuted angulated impacted fracture of the distal aspect of the secondmetacarpal. This may involve the articular surface. Foreign bodies are present about the dorsum of the hand and within thesecond digit. Soft tissue irregularity about the dorsum of the hand due to knownlaceration. Diminution of the soft tissues about the distal aspect of this fourthdigit may relate to soft tissue avulsion injury. This is of undeterminedage. Referred By: Interpreted By: Walker Oates MD, 11/01/2024 11:12 AM [facility] GENERAL IMAGING Final Result from Last 3 Months Insurance MEDICARE [facility] GENERIC - COMMERCIAL Care Teams Artificial Leather Calender Operator Relationship Specialty Start Date End Date Natali Story NP PCP - General NURSE PRACTITIONER 07/06/21
--- OUTSIDE RECORDS SUMMARY | 2025-01-05 15:02 | XMS_ITS | Patient Health Record ---
Author Organization [facility] Address [address] [place], [place] [id number] Care Team Providers Care Shop Service Technician Name Role Phone SAQIBPALLAVI Sanchez Unavailable [phone] Giovani Iglesias Unavailable Unavailable Allergies No Known Allergies Reason For Referral No Information Social History Social History Additional Details Category Social Info Options Details Migrated Social History Migrated Social History Smoking Status : Never used tobacco , History of tobacco use : Vital Signs Height-cm 170.18 cm 06/01/2024 Weight-kg 77.11 kg 06/01/2024 Height 67.00 in 06/01/2024 Weight 170 lbs 06/01/2024 BMI 26.62 kg/m2 06/01/2024 Encounters Encounter Location Date Provider Diagnosis [facility] [address] [place], [place] [id number] 06/01/2024 PALLAVI VILLAVICENCIO Metatarsalgia, right foot M77.41 ; Other eccrine sweat disorders L74.8 and Pain in right foot M79.671 Assessments Encounter Date Diagnosis (ICD Code) Assessment Notes Treatment Notes Treatment Clinical Notes Section Notes 06/01/2024 Other eccrine sweat disorders (ICD-10 - L74.8) Porokeratosis Resolved: The nonviable tissue was sharply debrided down to normal healthy appearing skin. No evidence of porokeratosis noted. Patient advised to monitor this area, as well as to use emollients and keep pressure off this area with padding, inserts, or orthotics. 06/01/2024 Metatarsalgia, right foot (ICD-10 - M77.41) Metatarsalgia: I discussed anti-inflammatory treatment options and various means of immobilization with the patient. I educated the patient on icing and stretching, supportive shoegear, and the use of orthotic devices and bracing. Continue supportive shoes and inserts 06/01/2024 Pain in right foot (ICD-10 - M79.671) Plan Of Treatment No Information Insurance Providers Payer Name Payer Address Payer Phone Subscriber Number Group Number Insured Name Patient Relationship to Insured Coverage Start Date Coverage End Date Medicare Part B [place] [address] [place] [phone] [id number] AMEYA CLARK Self - patient is the insured [facility] [address] [address] [place] [id number] AMEYA CLARK Self - patient is the insured
--- OUTSIDE RECORDS SUMMARY | 2025-01-05 15:02 | XMS_ITS | Encounter Summary ---
Author Organization [facility] Address [address] [place] [id number] Care Team Providers Care Machine Operator Helper Name Role Phone Ying Cevallos MD Primary Care Provider [phone] Natali Story NP Primary Care Provider Unavailabl e Encounter Details Date Type Department Care Team (Late st Contact Info) Description 10/06/2020 Eat Latin Message Enc [facility] Family & Internal Medicine [address] [id number] [employer], [facility] Provider Orders Social History Tobacco Use Types Packs/Day Years Used Date Smoking Tobacco: Some Days Cigarettes Smokeless Tobacco: Never Alcohol Use Standard Drinks/Week Comments Never 0 (1 standard drink = 0.6 oz pur e alcohol) Sex and Gender Information Value Date Recorded Sex Assigned at Male 11/01/2024 10:41 AM CDT Legal Sex Male 9:28 AM CDT Gender Identity Not on file Sexual Orientation Not on file documented as of this encounter Plan of Treatment Not on file documented as of this encounter Visit Diagnoses Not on filedocumented in this encounter Care Teams Machine Operator Helper Relationship Specialty Start Date End Date Ying Cevallos MD PCP - General INTERNAL MEDICINE 08/03/20 07/05/21 Natlai Stroy, EXPLOSIVE ORDNANCE HANDLER PCP - General NURSE PRACTITIONER 07/06/21 documented as of this encounter
--- OUTSIDE RECORDS SUMMARY | 2025-01-05 15:02 | XMS_ITS | Clinical Summary ---
Author Organization [address] Address [address] [place] [phone] Care Team Providers Care External Grinder Tool Name Role Phone Giovani Iglesias MD Primary Care Provider [phone] Allergies No known active allergies Medications pimecrolimus (ELIDEL) 1 % cream APPLY TO RASH AREAS ON GROIN TWICE A DAY FOR FLARES 1 Active ciclopirox (LOPROX) 0.77 % cream Apply 1 application topically 2 (two) times a day 1 Active clotrimazole 1 % cream Apply 1 application topically 2 (two) times a day 1 Active mometasone (NASONEX) 50 mcg/actuation nasal sprayIndications :Nasal obstruction SPRAY 2 SPRAYS INTO EACH NOSTRIL EVERY DAY 51 g 1 2 Active Active Problems Problem Noted Date Diagnosed Date Lip mass 07/11/2021 Dysphonia 04/11/2021 Nasal obstruction 04/11/2021 Encounters Date Type Department Care Team Description 11/12/2024 11:20 AM CDT Therapy [facility] Medicine Occupational Therapy [address] [place] [address] [place] [phone] Deisi Salomon, OT Hand pain, left (Primary Dx) 11/12/2024 10:00 AM CDT Office Visit [facility] Medicine Orthopaedic Surgery [address] [place] [address] [place] [phone] Dorothy Reyes MD Open displaced fracture of neck of second metacarpal bone of left hand, initial encounter (Primary Dx) 11/12/2024 Orders Only [facility]/WRIST Scanning, Provider 11/12/2024 Plan of Care Documentation [facility] Occupational Therapy [address] [place] [address] [place] [address] 11/01/2024 4:11 PM CDT - 11/01/2024 6:55 PM CDT Emergency [facility] [address] [place] [address] Val Pete MD Open nondisplaced fracture of distal phalanx of left index finger, initial encounter (Primary Dx); Laceration of left hand with foreign body, initial encounter Discharge Disposition: Discharge to home or self care from Last 3 Months Surgical History Surgery Date Site/Laterality Comments HAND SURGERY SPINAL CORD STIMULATOR IMPLANT SURGERY OF LIP Medical History Medical History Date Comments Lip lesion Family History Medical History Relation Name Comments Heart disease Other Relation Name Status Comments Other Social History Tobacco Use Types Packs/Day Years Used Date Smoking Tobacco: Every Day Cigarettes Smokeless Tobacco: Never Personal Safety Answer Date Recorded Have you ever been in or are you currently in a harmful physical or emotional relationship or is someone making you feel afraid or unsafe? Denies 11/01/2024 Sex and Gender Information Value Date Recorded Sex Assigned at Not on file Legal Sex Male 6:31 PM SUPERVISOR REMELT Gender Identity Not on file Sexual Orientation Not on file Obstetrics History Last Filed Vital Signs Vital Sign Reading Time Taken Comments Blood Pressure 150/65 11/01/2024 4:55 PM CDT Pulse 70 11/01/2024 4:55 PM CDT Temperature 36.4 C (97.5 F) 11/01/2024 2:31 PM CDT Respiratory Rate 20 11/01/2024 4:55 PM CDT Oxygen Saturation 95% 11/01/2024 4:55 PM CDT Inhaled Oxygen Concentration - - Weight 77.1 kg (170 lb) 11/01/2024 2:31 PM CDT Height 170.2 cm (5' 7) 11/01/2024 2:31 PM CDT Body Mass Index 26.63 11/01/2024 2:31 PM CDT Plan of Treatment Health Maintenance Due Date Last Done Comments Colon Cancer Screening-Colonoscopy 1958 Depression Screening 1958 Fall Risk Assessment 1958 Hepatitis C Screening 1960 Prostate Cancer Screening-PSA 1958 Hepatitis B Screening 1976 Pneumococcal vaccine 65+ (1 of 2 - PCV) 1977 Zoster Vaccine (1 of 2) 2008 Abdominal Aortic Aneurysm (A AA) Screen 2023 Well Visit 65+ 2023 Covid-19 Vaccine (4 - 2024- season) 2024 12/26/2020, 06/10/2020, 05/20/2020 Influenza Vaccine (#1) 2024 , 11/19/2021, 11/10/2020 DTaP/Tdap/Td Vaccine (2 - Td or Tdap) 02/01/2031, 08/03/2014 Procedures Procedure Name Priority Date/Time Associated Diagnosis Comments SCAN - RADIOLOGY/IMAGING 11/12/2024 XR HAND LEFT 3 OR MORE VIEWS ED 11/01/2024 6:08 PM CDT XR TRANSFER OF OUTSIDE FILMS Routine 11/01/2024 1:34 PM CDT from Last 3 Months Results * SCAN - RADIOLOGY/IMAGING (11/12/2024) Anatomical Region Laterality Modality Other us Provider Scanning Final Result * XR Hand Left 3 or More Views (11/01/2024 6:08 PM CDT) Anatomical Region Laterality Modality Upper Extremities, Hand Left Computed Radiography 11/01/2024 6:15 PM CDT Impressions 11/01/2024 6:21 PM CDT Comparison is made to radiographs of the left hand 11/01/2024. Interval placement of a splint overlying the imaged left upper extremity, which limits evaluation of fine osseous detail. Improved alignment of a comminuted fracture of the distal 2nd metacarpal with intra-articular extension. Unchanged small osseous fragment along the volar aspect of the distal 2nd proximal phalanx, likely representing a tiny avulsion fracture. Within the limitations of overlying splint, no other fracture or dislocation. Alignment and joint spaces are otherwise maintained. Dictated by: Kofi Mayberry M.D. The radiology attending physician has personally reviewed this study, and had reviewed and/or edited this written report and agrees with it. Electronically signed by: Joel Epstein M.D. Narrative 11/01/2024 6:21 PM CDT EXAMINATION: XR HAND LEFT 3 OR MORE VIEWS HISTORY: Fracture status post reduction Procedure Note Joel Epstein MD - 11/01/2024 EXAMINATION: XR HAND LEFT 3 OR MORE VIEWS HISTORY: Fracture status post reduction IMPRESSION: Comparison is made to radiographs of the left hand 11/01/2024. Interval placement of a splint overlying the imaged left upper extremity, which limits evaluation of fine osseous detail. Improved alignment of a comminuted fracture of the distal 2nd metacarpal with intra-articular extension. Unchanged small osseous fragment along the volar aspect of the distal 2nd proximal phalanx, likely representing a tiny avulsion fracture. Within the limitations of overlying splint, no other fracture or dislocation. Alignment and joint spaces are otherwise maintained. Dictated by: Kofi Mayberry M.D. The radiology attending physician has personally reviewed this study, and had reviewed and/or edited this written report and agrees with it. Electronically signed by: Joel Epstein M.D. us Celia Hallman MD IMG XR PROCEDURES Final Res ult * XR Outside Reference (11/01/2024 1:34 PM CDT) Impressions [facility] - 11/01/2024 1:34 PM CDT These images are for Reference purposes only and have not been reviewed by [facility] Radiology. There will be no report generated by a [facility] Radiologist. Narrative [facility] - 11/01/2024 1:34 PM CDT EXAMINATION: Images For Reference Purposes Only Kofi Culver MD IMG XR PROCEDURES Final Result [facility] from Last 3 Months Insurance MEDICARE [facility] CHOICE PLUS MEDICARE [facility] CHOICE PLUS Care Teams External Grinder Tool Relationship Specialty Start Date End Date Giovani Iglesias MD [address] [place] [address] PCP - General Family Medicine 11/01/24
== END 2025-01-05 13:07 | disposition home or self-care (01) ==
PROVIDERS: PCP Family Medicine; Visit Provider Internal Medicine Pulmonary Disease
DX: Z12.2 Encounter for screening for malignant neoplasm of respiratory organs (principal); Z87.891 Personal history of nicotine dependence
CPT/HCPCS: 71271